=== PATIENT | male | born 2000 | race Hispanic/Latino ===

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

== ENCOUNTER 2022-05-06 18:50 | Emergency (ER) | payer OTHER ==
[~2022-05-06] VITALS: Ht 180.3 cm; Wt 59.9 kg
[2022-05-06] MEDS ORDERED: BACTRIM 400-801 EACH PO (19:11)
[2022-05-06] MEDS ORDERED: CEPHALEXIN500 MG PO (19:11)
[2022-05-06] MEDS ORDERED: HYDROCODONE/APAP 10MG-325MG TAB PO ONE (19:15)
[2022-05-06] MEDS ORDERED: HYDROCODONE/APAP 10MG-325MG TAB ONE (19:29)
== END 2022-05-06 19:31 | disposition home or self-care (01) ==
LOC: ER 18:57
DX: L02.01 Cutaneous abscess of face (principal)
CPT/HCPCS: 99283

== ENCOUNTER 2022-05-07 09:10 | Emergency (ER) | payer OTHER ==
[~2022-05-07] VITALS: Ht 180.3 cm; Wt 59.9 kg
[~2022-05-07 09:10] MED LIST: BACTRIM 400-801 EACH PO; CEPHALEXIN500 MG PO
== END 2022-05-07 10:36 | disposition home or self-care (01) ==
LOC: ER 09:17
DX: L02.01 Cutaneous abscess of face (principal)
CPT/HCPCS: 99282